=== PATIENT | female | born 1955 | race Caucasian/White ===

== ENCOUNTER 2022-08-09 06:52 | Inpatient (IN) | payer BC, MEDICAID ==
[2022-08-09] VITALS (29 sets, daily range): BP systolic 106–193; BP diastolic 60–138
[~2022-08-09] VITALS: Ht 152.4 cm; Wt 41.7 kg
[2022-08-09] MEDS ORDERED: ALBUTEROL (0.083%) 2.5MG/3ML NEB HHN STA (08:21)
[2022-08-09] MEDS ORDERED: METHYLPREDNISOLONE SOD SUCC 125 MG/2 ML VIAL IV STA (08:21)
[2022-08-09 09:00] LABS: BG BASE EXCESS 0.3 mmol/L (-2.0-2.0); BG CARBOXYHEMOGLOBIN 3.7 % (0.5-1.5); BG DEOXYHEMOGLOBIN 6.6 % (0.0-5.0); BG FRACTION INSPIRED OXYGEN 35; BG HCO3 ACT 26.5 mmol/L (22.0-26.0); BG METHEMOGLOBIN 0.3 % (0.0-1.5); BG OXYGEN SATURATION 93.1 % (92.0-98.5); BG OXYHEMOGLOBIN 89.4 % (94.0-97.0); BG PCO2 49.4 mmHg (35.0-45.0); BG PH 7.348 (7.350-7.450); BG PO2 71.8 mmHg (75.0-100.0); BG SAMPLE SITE LEFT RADIAL; BG TOTAL HEMOGLOBIN 13.7 g/dL (12.0-18.0); BG VENT MODE MASK - BIPAP
[2022-08-09 09:08] LABS: HEMATOCRIT. 41.6 % (36.0-48.0); HEMOGLOBIN. 13.4 g/dL (12.0-16.0); MEAN CORPUSCULAR HEMOGLOBIN 31.1 pg (28.0-32.0); MEAN CORPUSCULAR VOLUME 96.7 fL (81.0-99.0); MEAN PLATELET VOLUME 9.1 fl (7.4-10.4); PLATELET 170 x1000/uL (130-400); RED CELL DISTRIBUTION WIDTH 16.4 % (11.6-14.6)
[2022-08-09 09:57] LABS: CHLORIDE 107 mEq/L (98-107)
[2022-08-09 10:10] LABS: ETHANOL BLOOD < 10 mg/dL
[2022-08-09 10:32] LABS: PLATELET ESTIMATE NORMAL
[2022-08-09] MEDS ORDERED: FUROSEMIDE 40MG/4ML VIAL IVP ONE (11:15)
[2022-08-09] MEDS ORDERED: NITROGLYCERIN 0.1MG/HR PATCH TOP ONE (11:15)
[2022-08-09] MEDS ORDERED: ASPIRIN 81MG TABLET PO ONE (12:00)
[2022-08-09] MEDS ORDERED: ONDANSETRON HCL 4MG/2ML INJ IV PRN (12:45)
[2022-08-09] MEDS ORDERED: LORAZEPAM 2MG/ML CPJ IV NR (12:45)
[2022-08-09] MEDS: FUROSEMIDE 40MG/4ML VIAL IVP SCH ×2 (13:36→17:10)
[2022-08-09] MEDS: AMLODIPINE 10MG TABLET PO SCH (13:36)
[2022-08-09] MEDS: HYDRALAZINE HCL 100MG TABLET PO SCH ×3 (14:00→22:11)
[2022-08-09] MEDS ORDERED: PROPOFOL 10MG/ML 100ML 100 ML IV PRN ×2 (16:30→16:45)
[2022-08-09] MEDS: HYDRALAZINE 20MG/ML VIAL IV PRN (17:10)
[2022-08-09 17:15] LABS: BG BASE EXCESS 2.9 mmol/L (-2.0-2.0); BG CARBOXYHEMOGLOBIN 1.8 % (0.5-1.5); BG DEOXYHEMOGLOBIN 4.1 % (0.0-5.0); BG FRACTION INSPIRED OXYGEN 100; BG HCO3 ACT 26.6 mmol/L (22.0-26.0); BG METHEMOGLOBIN 0.2 % (0.0-1.5); BG OXYGEN SATURATION 95.8 % (92.0-98.5); BG OXYHEMOGLOBIN 93.9 % (94.0-97.0); BG PH 7.463 (7.350-7.450); BG PO2 79.6 mmHg (75.0-100.0); BG SAMPLE SITE LEFT BRACHIAL; BG TOTAL HEMOGLOBIN 14.8 g/dL (12.0-18.0); BG VENT MODE VENT - AC
[2022-08-09 17:35] LABS: CLARITY URINE CLEAR (CLEAR); COLOR URINE YELLOW (YELLOW); PROTEIN URINE NEGATIVE (NEGATIVE)
[2022-08-09 17:36] LABS: KETONES URINE NEGATIVE (NEGATIVE); LEUKOCYTE ESTERASE URINE NEGATIVE (NEGATIVE); NITRITE URINE NEGATIVE (NEGATIVE); OCCULT BLOOD URINE NEGATIVE (NEGATIVE); UROBILINOGEN URINE 0.2 E.U./dL (0.2-1.0)
[2022-08-09] MEDS ORDERED: FENTANYL CITRATE/PF 2,500 MCG in SODIUM CHLORIDE 0.9% 200 ML IV PRN (18:00)
[2022-08-09] MEDS: FENTANYL 2500MCG/250ML PMX 250 ML IV PRN (18:04)
[2022-08-09] MEDS: MIDAZOLAM HCL 100 MG in SODIUM CHLORIDE 0.9% 80 ML IV PRN (18:13)
[2022-08-09] MEDS: ACETAMINOPHEN 325MG TABLET PO PRN (20:17)
[2022-08-09] MEDS: IPRATROPIUM BROMIDE (0.02%) 0.5MG/2.5ML NEB HHN SCH (20:25)
[2022-08-09 20:46] LABS: BG BASE EXCESS 9.1 mmol/L (-2.0-2.0); BG DEOXYHEMOGLOBIN 1.2 % (0.0-5.0); BG FRACTION INSPIRED OXYGEN 100; BG METHEMOGLOBIN 0.3 % (0.0-1.5); BG OXYGEN SATURATION 98.8 % (92.0-98.5); BG OXYHEMOGLOBIN 97.5 % (94.0-97.0); BG PCO2 37.9 mmHg (35.0-45.0); BG PH 7.545 (7.350-7.450); BG PO2 132.7 mmHg (75.0-100.0); BG SAMPLE SITE RIGHT RADIAL; BG TOTAL HEMOGLOBIN 14.3 g/dL (12.0-18.0); BG VENT MODE VENT - AC
[2022-08-09 21:20] LABS: HEMATOCRIT. 38.2 % (36.0-48.0); HEMOGLOBIN. 12.8 g/dL (12.0-16.0); INR 1.1; MEAN CORPUSCULAR HEMOGLOBIN 31.3 pg (28.0-32.0); MEAN CORPUSCULAR VOLUME 93.8 fL (81.0-99.0); MEAN PLATELET VOLUME 8.9 fl (7.4-10.4); PLATELET 159 x1000/uL (130-400); PROTHROMBIN TIME 11.3 sec (9.6-11.0); RED BLOOD CELL COUNT 4.07 mill/uL (4.2-5.4); RED CELL DISTRIBUTION WIDTH 16.1 % (11.6-14.6)
[2022-08-09] MEDS: DEXT 5%/0.45% NACL 1000ML 1,000 ML IV SCH (22:12)
[2022-08-09 22:44] LABS: PLATELET ESTIMATE NORMAL
[2022-08-09] MEDS: AZITHROMYCIN 500 MG in DEXT 5% WATER 250 ML IV SCH (23:03)
[2022-08-09] MEDS: PIPERACILLIN/TAZOBACTAM 3.375 G in DEXTROSE 5% WATER 50 ML IV SCH (23:31)
[2022-08-10] VITALS (68 sets, daily range): BP systolic 90–143; BP diastolic 47–96
[2022-08-10] MEDS: IPRATROPIUM BROMIDE (0.02%) 0.5MG/2.5ML NEB HHN SCH ×7 (00:07→23:45)
[2022-08-10 05:41] LABS: MEAN CORPUSCULAR HEMOGLOBIN 30.8 pg (28.0-32.0); MEAN CORPUSCULAR VOLUME 94.8 fL (81.0-99.0); MEAN PLATELET VOLUME 9.1 fl (7.4-10.4); PLATELET 151 x1000/uL (130-400); RED CELL DISTRIBUTION WIDTH 16.1 % (11.6-14.6)
[2022-08-10 05:43] LABS: CHLORIDE 100 mEq/L (98-107)
[2022-08-10] MEDS: HYDRALAZINE HCL 100MG TABLET PO SCH (06:10)
[2022-08-10] MEDS: PIPERACILLIN/TAZOBACTAM 3.375 G in DEXTROSE 5% WATER 50 ML IV SCH ×3 (06:11→22:19)
[2022-08-10] MEDS: AMLODIPINE 10MG TABLET PO SCH (09:00)
[2022-08-10 09:09] LABS: *AMPHETAMINES SCREEN URINE NEGATIVE (NEGATIVE); *BARBITURATES SCREEN URINE NEGATIVE (NEGATIVE); *BENZODIAZEPINES SCREEN URINE NEGATIVE (NEGATIVE); *COCAINE SCREEN URINE PRESUMTIVE POSITIVE (NEGATIVE); CANNABINOID URINE SCREEN NEGATIVE (NEGATIVE); METHADONE URINE SCREEN NEGATIVE (NEGATIVE); OPIATES URINE SCREEN NEGATIVE (NEGATIVE); PHENCYCLIDINE URINE SCREEN NEGATIVE (NEGATIVE)
[2022-08-10] MEDS: FUROSEMIDE 40MG/4ML VIAL IVP SCH ×2 (09:26→17:21)
[2022-08-10 10:10] LABS: PLATELET ESTIMATE NORMAL
[2022-08-10] MEDS ORDERED: AMLODIPINE 2.5MG TABLET NG SCH (17:00)
[2022-08-10] MEDS: DEXT 5%/0.45% NACL 1000ML 1,000 ML IV SCH (17:21)
[2022-08-11] VITALS (97 sets, daily range): BP systolic 81–168; BP diastolic 38–108
[2022-08-11] MEDS: AZITHROMYCIN 500 MG in DEXT 5% WATER 250 ML IV SCH ×2 (00:05→21:27)
[2022-08-11] MEDS: IPRATROPIUM BROMIDE (0.02%) 0.5MG/2.5ML NEB HHN SCH ×5 (04:01→20:41)
[2022-08-11 04:08] LABS: BASOPHILS % 0.1 % (0.0-2.0); HEMATOCRIT. 39.5 % (36.0-48.0); LYMPHOCYTES % 7.2 % (20.0-50.0); MEAN CORPUSCULAR HEMOGLOBIN 31.2 pg (28.0-32.0); MEAN CORPUSCULAR VOLUME 94.8 fL (81.0-99.0); MEAN PLATELET VOLUME 9.3 fl (7.4-10.4); MONOCYTES % 10.6 % (2.0-8.0); NEUTROPHILS % 82.1 % (40.0-76.0); PLATELET 141 x1000/uL (130-400); RED BLOOD CELL COUNT 4.17 mill/uL (4.2-5.4); RED CELL DISTRIBUTION WIDTH 16.8 % (11.6-14.6)
[2022-08-11] MEDS: PIPERACILLIN/TAZOBACTAM 3.375 G in DEXTROSE 5% WATER 50 ML IV SCH ×3 (05:21→21:27)
[2022-08-11 08:11] LABS: BG CARBOXYHEMOGLOBIN 0.5 % (0.5-1.5); BG FRACTION INSPIRED OXYGEN 60; BG HCO3 ACT 30.3 mmol/L (22.0-26.0); BG METHEMOGLOBIN 0.3 % (0.0-1.5); BG OXYHEMOGLOBIN 97.2 % (94.0-97.0); BG PCO2 38.2 mmHg (35.0-45.0); BG PH 7.517 (7.350-7.450); BG SAMPLE SITE RIGHT RADIAL; BG TOTAL HEMOGLOBIN 13.1 g/dL (12.0-18.0); BG VENT MODE VENT - AC
[2022-08-11] MEDS: AMLODIPINE 2.5MG TABLET NG SCH (09:04)
[2022-08-11] MEDS: FUROSEMIDE 40MG/4ML VIAL IVP SCH ×2 (09:04→16:05)
[2022-08-11] MEDS: FENTANYL 2500MCG/250ML PMX 250 ML IV PRN (10:07)
[2022-08-11] MEDS: MIDAZOLAM HCL 100 MG in SODIUM CHLORIDE 0.9% 80 ML IV PRN (11:29)
[2022-08-11] MEDS ORDERED: POTASSIUM CHLORIDE 20MEQ TABLET SR PO NR (11:30)
[2022-08-11] MEDS: DEXT 5%/0.45% NACL 1000ML 1,000 ML IV SCH (13:06)
[2022-08-11] MEDS ORDERED: NOREPINEPHRINE 8MG/250ML PMX 250 ML IV PRN (14:30)
[2022-08-11] MEDS ORDERED: NOREPINEPHRINE 8 MG in DEXTROSE 5% WATER 250 ML IV PRN (14:45)
[2022-08-11] MEDS: MIDODRINE HCL 5MG TABLET PO SCH (16:06)
[2022-08-12] VITALS (93 sets, daily range): BP systolic 77–140; BP diastolic 40–88
[2022-08-12] MEDS: IPRATROPIUM BROMIDE (0.02%) 0.5MG/2.5ML NEB HHN SCH ×7 (00:11→20:53)
[2022-08-12 04:51] LABS: BASOPHILS % 0.5 % (0.0-2.0); HEMATOCRIT. 36.8 % (36.0-48.0); HEMOGLOBIN. 12.1 g/dL (12.0-16.0); MEAN CORPUSCULAR HEMOGLOBIN 31.1 pg (28.0-32.0); MEAN CORPUSCULAR VOLUME 94.7 fL (81.0-99.0); MEAN PLATELET VOLUME 9.4 fl (7.4-10.4); MONOCYTES % 9.4 % (2.0-8.0); NEUTROPHILS % 81.1 % (40.0-76.0); PLATELET 126 x1000/uL (130-400); RED BLOOD CELL COUNT 3.89 mill/uL (4.2-5.4); RED CELL DISTRIBUTION WIDTH 16.1 % (11.6-14.6)
[2022-08-12 05:21] LABS: CHLORIDE 97 mEq/L (98-107)
[2022-08-12] MEDS: PIPERACILLIN/TAZOBACTAM 3.375 G in DEXTROSE 5% WATER 50 ML IV SCH ×3 (05:40→21:59)
[2022-08-12] MEDS: FUROSEMIDE 40MG/4ML VIAL IVP SCH ×2 (09:07→16:30)
[2022-08-12] MEDS: MIDODRINE HCL 5MG TABLET PO SCH ×3 (09:07→16:30)
[2022-08-12] MEDS: DEXT 5%/0.45% NACL 1000ML 1,000 ML IV SCH (09:07)
[2022-08-12] MEDS: AMLODIPINE 2.5MG TABLET NG SCH (10:43)
[2022-08-12] MEDS ORDERED: POTASSIUM CHLORIDE 20MEQ TABLET SR PO NR (12:00)
[2022-08-12] MEDS: FENTANYL 2500MCG/250ML PMX 250 ML IV PRN ×2 (12:22→22:21)
[2022-08-12] MEDS: METHYLPREDNISOLONE SOD SUCC 40 MG/ML VIAL IV SCH ×2 (12:25→16:29)
[2022-08-12 12:41] LABS: BG BASE EXCESS 3.7 mmol/L (-2.0-2.0); BG CARBOXYHEMOGLOBIN 0.6 % (0.5-1.5); BG DEOXYHEMOGLOBIN 7.6 % (0.0-5.0); BG FRACTION INSPIRED OXYGEN 40; BG HCO3 ACT 27.9 mmol/L (22.0-26.0); BG METHEMOGLOBIN 0.5 % (0.0-1.5); BG OXYGEN SATURATION 92.3 % (92.0-98.5); BG OXYHEMOGLOBIN 91.3 % (94.0-97.0); BG PCO2 40.7 mmHg (35.0-45.0); BG PH 7.454 (7.350-7.450); BG SAMPLE SITE RIGHT RADIAL; BG TOTAL HEMOGLOBIN 13.3 g/dL (12.0-18.0); BG VENT MODE VENT - AC
[2022-08-12] MEDS: AZITHROMYCIN 500 MG in DEXT 5% WATER 250 ML IV SCH (21:59)
[2022-08-12] MEDS ORDERED: POTASSIUM CHLORIDE 20MEQ/PACKET NG NR (22:00)
[2022-08-13] VITALS (93 sets, daily range): BP systolic 83–155; BP diastolic 53–102
[2022-08-13] MEDS: IPRATROPIUM BROMIDE (0.02%) 0.5MG/2.5ML NEB HHN SCH ×7 (00:54→19:31)
[2022-08-13 05:19] LABS: BASOPHILS % 0.3 % (0.0-2.0); HEMATOCRIT. 37.7 % (36.0-48.0); HEMOGLOBIN. 12.2 g/dL (12.0-16.0); LYMPHOCYTES % 11.1 % (20.0-50.0); MEAN CORPUSCULAR HEMOGLOBIN 31.4 pg (28.0-32.0); MEAN CORPUSCULAR VOLUME 97.3 fL (81.0-99.0); MEAN PLATELET VOLUME 9.4 fl (7.4-10.4); MONOCYTES % 10.3 % (2.0-8.0); NEUTROPHILS % 78.3 % (40.0-76.0); PLATELET 107 x1000/uL (130-400); RED BLOOD CELL COUNT 3.88 mill/uL (4.2-5.4); RED CELL DISTRIBUTION WIDTH 16.7 % (11.6-14.6)
[2022-08-13 05:52] LABS: CHLORIDE 100 mEq/L (98-107)
[2022-08-13] MEDS: PIPERACILLIN/TAZOBACTAM 3.375 G in DEXTROSE 5% WATER 50 ML IV SCH ×3 (06:13→22:23)
[2022-08-13] MEDS: DEXT 5%/0.45% NACL 1000ML 1,000 ML IV SCH (06:13)
[2022-08-13] MEDS: AMLODIPINE 2.5MG TABLET NG SCH (09:01)
[2022-08-13] MEDS: METHYLPREDNISOLONE SOD SUCC 40 MG/ML VIAL IV SCH ×2 (09:01→17:25)
[2022-08-13] MEDS: ACETAMINOPHEN 325MG TABLET PO PRN (09:01)
[2022-08-13] MEDS: MIDODRINE HCL 5MG TABLET PO SCH ×3 (09:01→17:25)
[2022-08-13] MEDS: FUROSEMIDE 40MG/4ML VIAL IVP SCH ×2 (09:01→17:25)
[2022-08-13 16:48] LABS: BG BASE EXCESS 2.3 mmol/L (-2.0-2.0); BG CARBOXYHEMOGLOBIN 0.6 % (0.5-1.5); BG DEOXYHEMOGLOBIN 5.7 % (0.0-5.0); BG HCO3 ACT 26.5 mmol/L (22.0-26.0); BG METHEMOGLOBIN 0.1 % (0.0-1.5); BG OXYGEN SATURATION 94.3 % (92.0-98.5); BG OXYHEMOGLOBIN 93.6 % (94.0-97.0); BG PCO2 39.5 mmHg (35.0-45.0); BG PH 7.444 (7.350-7.450); BG PO2 70.8 mmHg (75.0-100.0); BG SAMPLE SITE RIGHT RADIAL; BG TOTAL HEMOGLOBIN 13.6 g/dL (12.0-18.0); BG VENT MODE VENT - AC
[2022-08-13] MEDS: AZITHROMYCIN 500 MG in DEXT 5% WATER 250 ML IV SCH (22:23)
[2022-08-13] MEDS: FENTANYL 2500MCG/250ML PMX 250 ML IV PRN (22:24)
[2022-08-14] VITALS (87 sets, daily range): BP systolic 97–204; BP diastolic 53–144
[2022-08-14] MEDS: DEXT 5%/0.45% NACL 1000ML 1,000 ML IV SCH ×2 (01:45→22:23)
[2022-08-14] MEDS: IPRATROPIUM BROMIDE (0.02%) 0.5MG/2.5ML NEB HHN SCH ×3 (04:40→12:49)
[2022-08-14] MEDS: METHYLPREDNISOLONE SOD SUCC 40 MG/ML VIAL IV SCH ×2 (08:55→17:38)
[2022-08-14] MEDS: PIPERACILLIN/TAZOBACTAM 3.375 G in DEXTROSE 5% WATER 50 ML IV SCH ×2 (08:55→14:04)
[2022-08-14] MEDS: FUROSEMIDE 40MG/4ML VIAL IVP SCH ×2 (08:55→17:38)
[2022-08-14] MEDS: MIDODRINE HCL 5MG TABLET PO SCH ×3 (08:55→17:00)
[2022-08-14] MEDS: AMLODIPINE 2.5MG TABLET NG SCH (09:00)
[2022-08-14] MEDS: ACETAMINOPHEN 325MG TABLET PO PRN (10:55)
[2022-08-14 14:03] LABS: BG BASE EXCESS 1.5 mmol/L (-2.0-2.0); BG CARBOXYHEMOGLOBIN 0.5 % (0.5-1.5); BG FRACTION INSPIRED OXYGEN 50; BG HCO3 ACT 26.7 mmol/L (22.0-26.0); BG METHEMOGLOBIN 0.2 % (0.0-1.5); BG OXYHEMOGLOBIN 95.3 % (94.0-97.0); BG PH 7.401 (7.350-7.450); BG PO2 85.1 mmHg (75.0-100.0); BG SAMPLE SITE RIGHT RADIAL; BG TOTAL HEMOGLOBIN 14.7 g/dL (12.0-18.0); BG VENT MODE VENT - CPAP
[2022-08-14] MEDS ORDERED: HALOPERIDOL LACTATE 5MG/ML VIAL IM NR (15:00)
[2022-08-14] MEDS ORDERED: ALBUTEROL 6.7GM HFA INHALER ORI PRN (16:30)
[2022-08-14 20:36] LABS: BG BASE EXCESS 4.6 mmol/L (-2.0-2.0); BG CARBOXYHEMOGLOBIN 0.8 % (0.5-1.5); BG DEOXYHEMOGLOBIN 3.6 % (0.0-5.0); BG FRACTION INSPIRED OXYGEN 100; BG HCO3 ACT 30.1 mmol/L (22.0-26.0); BG METHEMOGLOBIN 0.2 % (0.0-1.5); BG OXYGEN SATURATION 96.4 % (92.0-98.5); BG OXYHEMOGLOBIN 95.4 % (94.0-97.0); BG PCO2 47.7 mmHg (35.0-45.0); BG PH 7.418 (7.350-7.450); BG PO2 86.1 mmHg (75.0-100.0); BG SAMPLE SITE RIGHT RADIAL; BG TOTAL HEMOGLOBIN 14.4 g/dL (12.0-18.0); BG VENT MODE MASK - NRB
[2022-08-14] MEDS: HYDRALAZINE 20MG/ML VIAL IV PRN (22:45)
[2022-08-15] VITALS (43 sets, daily range): BP systolic 126–196; BP diastolic 70–141
[2022-08-15] MEDS: CLONIDINE 0.1MG TABLET PO PRN (02:40)
[2022-08-15 05:13] LABS: HEMATOCRIT. 42.1 % (36.0-48.0); HEMOGLOBIN. 13.6 g/dL (12.0-16.0); MEAN CORPUSCULAR HEMOGLOBIN 30.4 pg (28.0-32.0); MEAN CORPUSCULAR VOLUME 94.4 fL (81.0-99.0); MEAN PLATELET VOLUME 9.6 fl (7.4-10.4); PLATELET 140 x1000/uL (130-400); RED BLOOD CELL COUNT 4.46 mill/uL (4.2-5.4); RED CELL DISTRIBUTION WIDTH 15.8 % (11.6-14.6)
[2022-08-15 05:19] LABS: CHLORIDE 101 mEq/L (98-107)
[2022-08-15 07:45] LABS: BG CARBOXYHEMOGLOBIN 0.8 % (0.5-1.5); BG DEOXYHEMOGLOBIN 2.2 % (0.0-5.0); BG HCO3 ACT 34.4 mmol/L (22.0-26.0); BG METHEMOGLOBIN 0.2 % (0.0-1.5); BG OXYGEN SATURATION 97.8 % (92.0-98.5); BG OXYHEMOGLOBIN 96.8 % (94.0-97.0); BG PCO2 49.2 mmHg (35.0-45.0); BG PH 7.462 (7.350-7.450); BG PO2 99.8 mmHg (75.0-100.0); BG SAMPLE SITE RIGHT RADIAL; BG TOTAL HEMOGLOBIN 14.9 g/dL (12.0-18.0); BG VENT MODE MASK - NRB
[2022-08-15 08:34] LABS: PLATELET ESTIMATE NORMAL
[2022-08-15] MEDS: MIDODRINE HCL 5MG TABLET PO SCH (09:00)
[2022-08-15] MEDS: METHYLPREDNISOLONE SOD SUCC 40 MG/ML VIAL IV SCH ×2 (09:16→17:00)
[2022-08-15] MEDS: FUROSEMIDE 40MG/4ML VIAL IVP SCH ×2 (09:16→17:00)
[2022-08-15] MEDS ORDERED: LORAZEPAM 2MG/ML CPJ IV PRN (12:30)
[2022-08-15] MEDS ORDERED: ENOXAPARIN 40MG/0.4ML SYR SUBCUT SCH (13:00)
[2022-08-15] MEDS ORDERED: POTASSIUM CHLORIDE INJ 40 MEQ in DEXT 5% WATER 250 ML IV NR (13:30)
[2022-08-15] MEDS: HYDRALAZINE 20MG/ML VIAL IV PRN ×2 (13:58→21:59)
[2022-08-15] MEDS: DEXT 5%/0.45% NACL 1000ML 1,000 ML IV SCH (18:41)
[2022-08-16] VITALS (46 sets, daily range): BP systolic 121–188; BP diastolic 58–131
[2022-08-16 04:36] LABS: HEMATOCRIT. 46.4 % (36.0-48.0); HEMOGLOBIN. 14.9 g/dL (12.0-16.0); MEAN CORPUSCULAR HEMOGLOBIN 30.4 pg (28.0-32.0); MEAN CORPUSCULAR VOLUME 94.5 fL (81.0-99.0); MEAN PLATELET VOLUME 9.5 fl (7.4-10.4); PLATELET 184 x1000/uL (130-400); RED BLOOD CELL COUNT 4.91 mill/uL (4.2-5.4); RED CELL DISTRIBUTION WIDTH 15.9 % (11.6-14.6)
[2022-08-16 04:40] LABS: CHLORIDE 100 mEq/L (98-107)
[2022-08-16] MEDS: HYDRALAZINE 20MG/ML VIAL IV PRN (05:07)
[2022-08-16 07:39] LABS: PLATELET ESTIMATE NORMAL
[2022-08-16] MEDS: CLONIDINE 0.1MG TABLET PO PRN (07:39)
[2022-08-16] MEDS ORDERED: HYDRALAZINE 20MG/ML VIAL IV PRN (08:15)
[2022-08-16] MEDS ORDERED: HYDRALAZINE 20MG/ML VIAL IV NR (08:15)
[2022-08-16] MEDS: FUROSEMIDE 40MG/4ML VIAL IVP SCH ×2 (08:29→16:31)
[2022-08-16] MEDS: AMLODIPINE 5MG TABLET PO SCH ×2 (08:29→20:57)
[2022-08-16] MEDS: METHYLPREDNISOLONE SOD SUCC 40 MG/ML VIAL IV SCH ×2 (08:29→16:31)
[2022-08-16] MEDS: ENOXAPARIN 30MG/0.3ML SYR SUBCUT SCH (08:30)
[2022-08-16] MEDS ORDERED: AMLODIPINE 5MG TABLET NG SCH (10:00)
[2022-08-16] MEDS: HYDRALAZINE HCL 50MG TABLET PO SCH ×2 (13:06→21:56)
[2022-08-16 13:07] LABS: BG BASE EXCESS 7.5 mmol/L (-2.0-2.0); BG DEOXYHEMOGLOBIN 2.2 % (0.0-5.0); BG FRACTION INSPIRED OXYGEN 100; BG HCO3 ACT 32.6 mmol/L (22.0-26.0); BG METHEMOGLOBIN 0.2 % (0.0-1.5); BG OXYGEN SATURATION 97.8 % (92.0-98.5); BG OXYHEMOGLOBIN 96.6 % (94.0-97.0); BG PCO2 46.5 mmHg (35.0-45.0); BG PH 7.463 (7.350-7.450); BG PO2 93.9 mmHg (75.0-100.0); BG SAMPLE SITE RIGHT RADIAL; BG VENT MODE MASK - NRB
[2022-08-16] MEDS: DEXT 5%/0.45% NACL 1000ML 1,000 ML IV SCH (13:07)
[2022-08-17] VITALS (34 sets, daily range): BP systolic 97–153; BP diastolic 55–102
[2022-08-17 05:21] LABS: HEMATOCRIT. 47.3 % (36.0-48.0); HEMOGLOBIN. 15.6 g/dL (12.0-16.0); MEAN CORPUSCULAR HEMOGLOBIN 30.7 pg (28.0-32.0); MEAN CORPUSCULAR VOLUME 93.2 fL (81.0-99.0); MEAN PLATELET VOLUME 9.3 fl (7.4-10.4); PLATELET 205 x1000/uL (130-400); RED BLOOD CELL COUNT 5.07 mill/uL (4.2-5.4); RED CELL DISTRIBUTION WIDTH 15.5 % (11.6-14.6)
[2022-08-17 05:40] LABS: CHLORIDE 97 mEq/L (98-107)
[2022-08-17] MEDS: HYDRALAZINE HCL 50MG TABLET PO SCH ×3 (06:21→21:02)
[2022-08-17] MEDS: METHYLPREDNISOLONE SOD SUCC 40 MG/ML VIAL IV SCH ×2 (08:26→18:00)
[2022-08-17] MEDS: FUROSEMIDE 40MG/4ML VIAL IVP SCH (08:26)
[2022-08-17] MEDS: AMLODIPINE 5MG TABLET PO SCH ×2 (08:26→21:00)
[2022-08-17] MEDS: DEXT 5%/0.45% NACL 1000ML 1,000 ML IV SCH (08:27)
[2022-08-17] MEDS: ENOXAPARIN 30MG/0.3ML SYR SUBCUT SCH (08:27)
[2022-08-17 08:38] LABS: PLATELET ESTIMATE NORMAL
[2022-08-18] VITALS: BP 129/93
[2022-08-18 04:00] VITALS: BP 131/76
[2022-08-18] MEDS: ACETAMINOPHEN 325MG TABLET PO PRN (05:19)
[2022-08-18] MEDS: HYDRALAZINE HCL 50MG TABLET PO SCH ×3 (05:20→21:27)
[2022-08-18 08:00] VITALS: BP 107/80
[2022-08-18] MEDS: AMLODIPINE 5MG TABLET PO SCH ×2 (09:00→21:27)
[2022-08-18] MEDS: ENOXAPARIN 30MG/0.3ML SYR SUBCUT SCH (09:11)
[2022-08-18] MEDS: METHYLPREDNISOLONE SOD SUCC 40 MG/ML VIAL IV SCH ×2 (09:11→18:29)
[2022-08-18] MEDS: FUROSEMIDE 40MG TABLET PO SCH (09:11)
[2022-08-18 12:00] VITALS: BP 108/75
[2022-08-18 16:00] VITALS: BP 109/74
[2022-08-18] MEDS ORDERED: POTASSIUM CHLORIDE 20MEQ TABLET SR PO SCH (17:30)
[2022-08-18 20:00] VITALS: BP 135/91
[2022-08-19] VITALS: BP 124/71
[2022-08-19 04:00] VITALS: BP 135/85
[2022-08-19] MEDS: HYDRALAZINE HCL 50MG TABLET PO SCH ×3 (05:22→22:35)
[2022-08-19 05:48] LABS: HEMATOCRIT. 44.7 % (36.0-48.0); HEMOGLOBIN. 14.8 g/dL (12.0-16.0); MEAN CORPUSCULAR HEMOGLOBIN 30.7 pg (28.0-32.0); MEAN CORPUSCULAR VOLUME 92.7 fL (81.0-99.0); MEAN PLATELET VOLUME 9.2 fl (7.4-10.4); PLATELET 217 x1000/uL (130-400); RED BLOOD CELL COUNT 4.82 mill/uL (4.2-5.4); RED CELL DISTRIBUTION WIDTH 15.6 % (11.6-14.6)
[2022-08-19 08:00] VITALS: BP 124/73
[2022-08-19 09:00] LABS: CHLORIDE 99 mEq/L (98-107)
[2022-08-19] MEDS: FUROSEMIDE 40MG TABLET PO SCH (09:14)
[2022-08-19] MEDS: METHYLPREDNISOLONE SOD SUCC 40 MG/ML VIAL IV SCH (09:14)
[2022-08-19] MEDS: ENOXAPARIN 30MG/0.3ML SYR SUBCUT SCH (09:14)
[2022-08-19] MEDS: AMLODIPINE 5MG TABLET PO SCH ×2 (09:15→20:15)
[2022-08-19 12:00] VITALS: BP 124/83
[2022-08-19 12:38] LABS: PLATELET ESTIMATE NORMAL
[2022-08-19] MEDS: PREDNISONE 20MG TABLET PO SCH (14:37)
[2022-08-19 16:00] VITALS: BP 101/66
[2022-08-19 20:00] VITALS: BP 120/84
[2022-08-19] MEDS: QUETIAPINE FUMARATE 25MG TABLET PO SCH (20:14)
[2022-08-20] VITALS: BP_SYST 124; BP_SYST 129; BP_DIAS 75; BP_DIAS 88
[2022-08-20] MEDS: PREDNISONE 20MG TABLET PO SCH ×2 (00:45→13:48)
[2022-08-20 04:00] VITALS: BP 131/85
[2022-08-20] MEDS: HYDRALAZINE HCL 50MG TABLET PO SCH ×3 (05:01→21:05)
[2022-08-20 08:00] VITALS: BP 108/77
[2022-08-20] MEDS: AMLODIPINE 5MG TABLET PO SCH ×2 (08:59→21:00)
[2022-08-20] MEDS: ENOXAPARIN 30MG/0.3ML SYR SUBCUT SCH (09:09)
[2022-08-20] MEDS: FUROSEMIDE 40MG TABLET PO SCH (09:10)
[2022-08-20] MEDS: QUETIAPINE FUMARATE 25MG TABLET PO SCH ×2 (09:10→21:32)
[2022-08-20 12:00] VITALS: BP 110/71
[2022-08-20 16:00] VITALS: BP 115/77
[2022-08-20 20:00] VITALS: BP 90/57
[2022-08-21] VITALS: BP 145/53
[2022-08-21] MEDS: PREDNISONE 20MG TABLET PO SCH ×2 (01:26→12:54)
[2022-08-21 04:00] VITALS: BP 144/95
[2022-08-21] MEDS: HYDRALAZINE HCL 50MG TABLET PO SCH ×3 (06:40→21:06)
[2022-08-21 07:49] LABS: BASOPHILS % 0.1 % (0.0-2.0); EOSINOPHILS % 0.9 % (0.0-5.0); HEMATOCRIT. 42.3 % (36.0-48.0); HEMOGLOBIN. 13.8 g/dL (12.0-16.0); LYMPHOCYTES % 11.5 % (20.0-50.0); MEAN CORPUSCULAR HEMOGLOBIN 30.6 pg (28.0-32.0); MEAN CORPUSCULAR VOLUME 93.5 fL (81.0-99.0); MONOCYTES % 10.5 % (2.0-8.0); PLATELET 225 x1000/uL (130-400); RED BLOOD CELL COUNT 4.52 mill/uL (4.2-5.4); RED CELL DISTRIBUTION WIDTH 15.6 % (11.6-14.6)
[2022-08-21 08:00] VITALS: BP 132/82
[2022-08-21 08:13] LABS: CHLORIDE 98 mEq/L (98-107)
[2022-08-21] MEDS: AMLODIPINE 5MG TABLET PO SCH ×2 (09:30→20:50)
[2022-08-21] MEDS: QUETIAPINE FUMARATE 25MG TABLET PO SCH (09:30)
[2022-08-21] MEDS: ENOXAPARIN 30MG/0.3ML SYR SUBCUT SCH (09:31)
[2022-08-21] MEDS: FUROSEMIDE 40MG TABLET PO SCH (09:34)
[2022-08-21 12:00] VITALS: BP 114/66
[2022-08-21 16:00] VITALS: BP 103/63
[2022-08-21 20:00] VITALS: BP 95/58
[2022-08-21] MEDS: QUETIAPINE FUMARATE 50MG TABLET PO SCH (20:32)
[2022-08-22] VITALS: BP 126/81
[2022-08-22] MEDS: PREDNISONE 20MG TABLET PO SCH ×2 (01:45→14:08)
[2022-08-22 04:00] VITALS: BP 146/117
[2022-08-22] MEDS: HYDRALAZINE HCL 50MG TABLET PO SCH ×3 (05:56→21:01)
[2022-08-22 08:00] VITALS: BP 109/72
[2022-08-22] MEDS: AMLODIPINE 5MG TABLET PO SCH ×2 (09:00→21:01)
[2022-08-22] MEDS: FUROSEMIDE 40MG TABLET PO SCH (09:03)
[2022-08-22] MEDS: QUETIAPINE FUMARATE 50MG TABLET PO SCH ×2 (09:03→21:01)
[2022-08-22] MEDS: ENOXAPARIN 30MG/0.3ML SYR SUBCUT SCH (09:03)
[2022-08-22 12:00] VITALS: BP 119/68
[2022-08-22 16:00] VITALS: BP 97/60
[2022-08-22 20:00] VITALS: BP 118/69
[2022-08-23] VITALS: BP 98/66
[2022-08-23] MEDS: PREDNISONE 20MG TABLET PO SCH ×2 (01:45→13:40)
[2022-08-23 04:00] VITALS: BP 113/72
[2022-08-23] MEDS: HYDRALAZINE HCL 50MG TABLET PO SCH ×3 (06:00→21:31)
[2022-08-23 06:19] LABS: BASOPHILS % 0.1 % (0.0-2.0); EOSINOPHILS % 0.2 % (0.0-5.0); HEMATOCRIT. 44.4 % (36.0-48.0); HEMOGLOBIN. 14.3 g/dL (12.0-16.0); LYMPHOCYTES % 13.7 % (20.0-50.0); MEAN CORPUSCULAR HEMOGLOBIN 30.2 pg (28.0-32.0); MEAN PLATELET VOLUME 9.3 fl (7.4-10.4); MONOCYTES % 9.6 % (2.0-8.0); NEUTROPHILS % 76.4 % (40.0-76.0); PLATELET 214 x1000/uL (130-400); RED BLOOD CELL COUNT 4.73 mill/uL (4.2-5.4); RED CELL DISTRIBUTION WIDTH 15.8 % (11.6-14.6)
[2022-08-23 08:00] VITALS: BP 117/72
[2022-08-23] MEDS: FUROSEMIDE 40MG TABLET PO SCH (08:56)
[2022-08-23] MEDS: ENOXAPARIN 30MG/0.3ML SYR SUBCUT SCH (08:56)
[2022-08-23] MEDS: AMLODIPINE 5MG TABLET PO SCH ×2 (08:56→20:49)
[2022-08-23] MEDS: QUETIAPINE FUMARATE 50MG TABLET PO SCH ×2 (08:56→20:49)
[2022-08-23 10:54] LABS: CHLORIDE 98 mEq/L (98-107)
[2022-08-23 12:00] VITALS: BP 90/62
[2022-08-23 16:00] VITALS: BP 103/67
[2022-08-23 20:00] VITALS: BP 115/72
[2022-08-24] VITALS: BP 120/78
[2022-08-24] MEDS: PREDNISONE 20MG TABLET PO SCH ×2 (00:54→13:09)
[2022-08-24 04:00] VITALS: BP 116/75
[2022-08-24] MEDS: HYDRALAZINE HCL 50MG TABLET PO SCH ×3 (05:27→21:05)
[2022-08-24 08:00] VITALS: BP_SYST 105; BP_SYST 108; BP_DIAS 60; BP_DIAS 70
[2022-08-24] MEDS: FUROSEMIDE 40MG TABLET PO SCH (08:43)
[2022-08-24] MEDS: QUETIAPINE FUMARATE 50MG TABLET PO SCH ×2 (08:43→21:05)
[2022-08-24] MEDS: AMLODIPINE 5MG TABLET PO SCH ×2 (08:43→21:05)
[2022-08-24] MEDS: ENOXAPARIN 30MG/0.3ML SYR SUBCUT SCH (08:43)
[2022-08-24 12:00] VITALS: BP 90/60
[2022-08-24 16:00] VITALS: BP 90/61
[2022-08-24 20:00] VITALS: BP 117/86
[2022-08-25] VITALS (7 sets, daily range): BP systolic 94–120; BP diastolic 56–89
[2022-08-25] MEDS: PREDNISONE 20MG TABLET PO SCH ×2 (01:30→13:30)
[2022-08-25] MEDS: HYDRALAZINE HCL 50MG TABLET PO SCH ×3 (05:09→22:44)
[2022-08-25 08:00] LABS: CHLORIDE 99 mEq/L (98-107)
[2022-08-25] MEDS: FUROSEMIDE 40MG TABLET PO SCH (08:44)
[2022-08-25] MEDS: QUETIAPINE FUMARATE 50MG TABLET PO SCH ×2 (08:44→20:48)
[2022-08-25] MEDS: ENOXAPARIN 30MG/0.3ML SYR SUBCUT SCH (08:44)
[2022-08-25] MEDS: AMLODIPINE 5MG TABLET PO SCH ×2 (09:00→20:49)
[2022-08-26] VITALS: BP 110/70
[2022-08-26] MEDS: PREDNISONE 20MG TABLET PO SCH ×2 (00:49→14:03)
[2022-08-26 04:00] VITALS: BP 120/65
[2022-08-26] MEDS: HYDRALAZINE HCL 50MG TABLET PO SCH ×3 (05:34→21:25)
[2022-08-26 08:00] VITALS: BP 126/79
[2022-08-26] MEDS: QUETIAPINE FUMARATE 50MG TABLET PO SCH ×2 (09:34→20:07)
[2022-08-26] MEDS: FUROSEMIDE 40MG TABLET PO SCH (09:34)
[2022-08-26] MEDS: ENOXAPARIN 30MG/0.3ML SYR SUBCUT SCH (09:34)
[2022-08-26] MEDS: AMLODIPINE 5MG TABLET PO SCH ×2 (09:34→20:07)
[2022-08-26 12:00] VITALS: BP 106/69
[2022-08-26 16:00] VITALS: BP 101/59
[2022-08-26 20:00] VITALS: BP 113/84
[2022-08-27] VITALS: BP 120/81
[2022-08-27] MEDS: PREDNISONE 20MG TABLET PO SCH ×2 (01:03→14:22)
[2022-08-27 04:00] VITALS: BP 110/81
[2022-08-27] MEDS: HYDRALAZINE HCL 50MG TABLET PO SCH ×2 (05:30→14:00)
[2022-08-27 06:27] LABS: HEMOGLOBIN. 12.7 g/dL (12.0-16.0); MEAN CORPUSCULAR HEMOGLOBIN 30.3 pg (28.0-32.0); MEAN CORPUSCULAR VOLUME 93.3 fL (81.0-99.0); MEAN PLATELET VOLUME 9.1 fl (7.4-10.4); PLATELET 188 x1000/uL (130-400); RED BLOOD CELL COUNT 4.19 mill/uL (4.2-5.4); RED CELL DISTRIBUTION WIDTH 15.6 % (11.6-14.6)
[2022-08-27 08:00] VITALS: BP 102/72
[2022-08-27 08:13] LABS: CHLORIDE 101 mEq/L (98-107)
[2022-08-27] MEDS: AMLODIPINE 5MG TABLET PO SCH (09:00)
[2022-08-27] MEDS: FUROSEMIDE 40MG TABLET PO SCH (09:27)
[2022-08-27] MEDS: QUETIAPINE FUMARATE 50MG TABLET PO SCH (09:28)
[2022-08-27] MEDS: ENOXAPARIN 30MG/0.3ML SYR SUBCUT SCH (09:28)
[2022-08-27 09:57] LABS: PLATELET ESTIMATE NORMAL
[2022-08-27 12:00] VITALS: BP 105/72
[2022-08-27 16:00] VITALS: BP 111/80
== END 2022-08-27 19:30 | disposition left against medical advice (07) | DRG 870 ==
LOC: ER 06:52 → MICUNO 11:11 → EDBEDREQ 11:15 → EDBEDREQTM 11:15 → EDBEDREQSVC 11:15 → ENRESERV 12:26 → 7EST 08-17 17:13
PROVIDERS: ADMIT Internal Medicine; ATTEND Internal Medicine
PROC: 5A1955Z Respiratory Ventilation, Greater than 96 Consecutive Hours (ICD-10-PCS; principal; 2022-08-09)
PROC: 5A09357 Assistance with Respiratory Ventilation, Less than 24 Consecutive Hours, Continuous Positive Airway Pressure (ICD-10-PCS; 2022-08-09)
PROC: 0BH17EZ Insertion of Endotracheal Airway into Trachea, Via Natural or Artificial Opening (ICD-10-PCS; 2022-08-09)
DX: A41.89 Other specified sepsis (principal); I21.4 Non-ST elevation (NSTEMI) myocardial infarction; I50.43 Acute on chronic combined systolic (congestive) and diastolic (congestive) heart failure; U07.1 COVID-19; J96.01 Acute respiratory failure with hypoxia; E44.0 Moderate protein-calorie malnutrition; J44.1 Chronic obstructive pulmonary disease with (acute) exacerbation; J44.0 Chronic obstructive pulmonary disease with (acute) lower respiratory infection; J84.9 Interstitial pulmonary disease, unspecified; E87.3 Alkalosis; G93.40 Encephalopathy, unspecified; R64 Cachexia; Z68.1 Body mass index [BMI] 19.9 or less, adult; I16.0 Hypertensive urgency; I11.0 Hypertensive heart disease with heart failure; E78.5 Hyperlipidemia, unspecified; I71.20 Thoracic aortic aneurysm, without rupture, unspecified; F14.10 Cocaine abuse, uncomplicated; F17.200 Nicotine dependence, unspecified, uncomplicated; R74.01 Elevation of levels of liver transaminase levels; E87.6 Hypokalemia; I49.1 Atrial premature depolarization; Z86.73 Personal history of transient ischemic attack (TIA), and cerebral infarction without residual deficits; Z78.1 Physical restraint status; Z79.899 Other long term (current) drug therapy; Z78.9 Other specified health status; Z53.29 Procedure and treatment not carried out because of patient's decision for other reasons
CPT/HCPCS: 31500; 36415; 36600; 71045; 71250; 80048; 80053; 80305; 80320; 81003; 82140; 82375; 82805; 82962; 83735; 83880; 84145; 84478; 84484; 85025; 87070; 87426; 92610; 93005; 94003; 94640; 94660; 99291; C9803; J0360; J0456; J1630; J1650; J1940; J2060; J2250; J2405; J2543; J2704; J2920; J2930; J3010; J3480; J3490; J7050; J7060; J7512; G0480

== ENCOUNTER 2022-11-16 01:45 | Inpatient (IN) | payer BC, MEDICAID ==
[~2022-11-16] VITALS: Ht 149.9 cm; Wt 50.8 kg
[2022-11-16] MEDS ORDERED: AMLODIPINE 5MG TABLET PO ONE ×2 (03:30→05:45)
[2022-11-16 04:09] LABS: BASOPHILS % 0.8 % (0.0-2.0); EOSINOPHILS % 1.3 % (0.0-5.0); HEMATOCRIT. 37.7 % (36.0-48.0); HEMOGLOBIN. 12.4 g/dL (12.0-16.0); LYMPHOCYTES % 13.2 % (20.0-50.0); MEAN CORPUSCULAR HEMOGLOBIN 31.9 pg (28.0-32.0); MEAN CORPUSCULAR VOLUME 96.6 fL (81.0-99.0); MEAN PLATELET VOLUME 8.9 fl (7.4-10.4); MONOCYTES % 6.7 % (2.0-8.0); PLATELET 164 x1000/uL (130-400); RED BLOOD CELL COUNT 3.91 mill/uL (4.2-5.4); RED CELL DISTRIBUTION WIDTH 15.4 % (11.6-14.6)
[2022-11-16 04:16] LABS: CHLORIDE 108 mEq/L (98-107)
[2022-11-16 04:45] LABS: BG BASE EXCESS 2.2 mmol/L (-2.0-2.0); BG CARBOXYHEMOGLOBIN 3.4 % (0.5-1.5); BG DEOXYHEMOGLOBIN 8.2 % (0.0-5.0); BG FRACTION INSPIRED OXYGEN 28; BG HCO3 ACT 27.1 mmol/L (22.0-26.0); BG METHEMOGLOBIN 0.1 % (0.0-1.5); BG OXYGEN SATURATION 91.5 % (92.0-98.5); BG OXYHEMOGLOBIN 88.3 % (94.0-97.0); BG PCO2 43.3 mmHg (35.0-45.0); BG PH 7.414 (7.350-7.450); BG PO2 62.9 mmHg (75.0-100.0); BG SAMPLE SITE RIGHT RADIAL; BG TOTAL HEMOGLOBIN 13.2 g/dL (12.0-18.0); BG VENT MODE NASAL CANNULA
[2022-11-16] MEDS ORDERED: ASPIRIN 325MG EC TABLET PO ONE (05:00)
[2022-11-16] MEDS ORDERED: FUROSEMIDE 20MG/2ML VIAL IVP ONE (05:45)
[2022-11-16] MEDS ORDERED: ONDANSETRON HCL 4MG/2ML INJ IV PRN (06:45)
[2022-11-16] MEDS ORDERED: IPRATROPIUM/ALBUTEROL 0.5-3(2.5)MG/3ML NEB HHN SCH (06:45)
[2022-11-16] MEDS ORDERED: MAGNESIUM/ALUMINUM HYDROXIDE/SIMETHICONE 30ML UDC PO PRN (06:45)
[2022-11-16] MEDS: ASPIRIN 81MG TABLET PO SCH (08:50)
[2022-11-16] MEDS: ENOXAPARIN 40MG/0.4ML SYR SUBCUT SCH (09:00)
[2022-11-16] MEDS: FAMOTIDINE 20MG/2ML VIAL IV SCH (09:00)
[2022-11-16] MEDS: FUROSEMIDE 40MG/4ML VIAL IVP SCH (09:00)
[2022-11-16] MEDS: LISINOPRIL 20MG TABLET PO SCH (09:00)
[2022-11-16] MEDS: CLONIDINE 0.1MG TABLET PO PRN (10:58)
[2022-11-16 13:35] VITALS: BP 113/79
[2022-11-16 13:44] VITALS: BP 113/79
[2022-11-16 14:08] LABS: CREATINE KINASE MB FRACTION 5.1 ng/mL (0.5-3.6)
[2022-11-16] MEDS: IPRATROPIUM BROMIDE (0.02%) 0.5MG/2.5ML NEB HHN SCH ×2 (14:08→20:11)
[2022-11-16] MEDS: ALBUTEROL (0.083%) 2.5MG/3ML NEB HHN SCH ×2 (14:09→20:11)
[2022-11-16] MEDS ORDERED: PNEUMOCOCCAL 23-VAL P-SAC VAC 0.5 ML IM ONE (14:30)
[2022-11-16] MEDS ORDERED: INFLUENZA VACCINE 05/PF 0.5 ML SYRINGE IM ONE (14:30)
[2022-11-16 16:00] VITALS: BP 127/91
[2022-11-16 20:00] VITALS: BP 122/95
[2022-11-16 20:03] LABS: CREATINE KINASE MB FRACTION 4.2 ng/mL (0.5-3.6)
[2022-11-16] MEDS: SPIRONOLACTONE 25MG TABLET PO SCH (20:53)
[2022-11-17] VITALS (7 sets, daily range): BP systolic 83–157; BP diastolic 51–103
[2022-11-17] MEDS: IPRATROPIUM BROMIDE (0.02%) 0.5MG/2.5ML NEB HHN SCH ×6 (00:28→21:35)
[2022-11-17] MEDS: ALBUTEROL (0.083%) 2.5MG/3ML NEB HHN SCH ×6 (00:28→21:35)
[2022-11-17 01:05] LABS: CREATINE KINASE MB FRACTION 3.8 ng/mL (0.5-3.6)
[2022-11-17] MEDS: CLONIDINE 0.1MG TABLET PO PRN (05:24)
[2022-11-17 06:55] LABS: BASOPHILS % 0.7 % (0.0-2.0); HEMATOCRIT. 40.9 % (36.0-48.0); HEMOGLOBIN. 13.2 g/dL (12.0-16.0); LYMPHOCYTES % 11.2 % (20.0-50.0); MEAN CORPUSCULAR HEMOGLOBIN 31.3 pg (28.0-32.0); MEAN CORPUSCULAR VOLUME 96.8 fL (81.0-99.0); MEAN PLATELET VOLUME 9.4 fl (7.4-10.4); MONOCYTES % 5.8 % (2.0-8.0); NEUTROPHILS % 81.3 % (40.0-76.0); PLATELET 180 x1000/uL (130-400); RED BLOOD CELL COUNT 4.23 mill/uL (4.2-5.4); RED CELL DISTRIBUTION WIDTH 15.5 % (11.6-14.6)
[2022-11-17 06:59] LABS: CHLORIDE 104 mEq/L (98-107)
[2022-11-17 07:23] LABS: HDL CHOLESTEROL 45 mg/dL (40-59); LDL CHOLESTEROL 151 mg/dL (5-100); T4 FREE 1.63 ng/dL (0.76-1.46)
[2022-11-17 07:57] LABS: VITAMIN B12 SERUM 251 pg/mL (211-911)
[2022-11-17] MEDS: ENOXAPARIN 40MG/0.4ML SYR SUBCUT SCH (09:23)
[2022-11-17] MEDS: ASPIRIN 81MG TABLET PO SCH (09:23)
[2022-11-17] MEDS: FUROSEMIDE 40MG/4ML VIAL IVP SCH (09:23)
[2022-11-17] MEDS: FAMOTIDINE 20MG/2ML VIAL IV SCH (09:23)
[2022-11-17] MEDS: LISINOPRIL 20MG TABLET PO SCH (09:23)
[2022-11-17] MEDS ORDERED: SODIUM CHLORIDE 0.9% 250 ML IV ONE (13:00)
[2022-11-17] MEDS ORDERED: IPRATROPIUM BROMIDE (0.02%) 0.5MG/2.5ML NEB HHN PRN (17:00)
[2022-11-17] MEDS ORDERED: ALBUTEROL (0.083%) 2.5MG/3ML NEB HHN PRN (17:00)
[2022-11-17] MEDS ORDERED: IPRATROPIUM/ALBUTEROL 0.5-3(2.5)MG/3ML NEB HHN PRN (17:00)
[2022-11-17 19:00] LABS: CLARITY URINE CLOUDY (CLEAR); COLOR URINE YELLOW (YELLOW); KETONES URINE TRACE (NEGATIVE); LEUKOCYTE ESTERASE URINE 1+ (NEGATIVE); NITRITE URINE NEGATIVE (NEGATIVE); OCCULT BLOOD URINE NEGATIVE (NEGATIVE); PH URINE 5.5 (4.5-8.0); PROTEIN URINE TRACE (NEGATIVE); SPECIFIC GRAVITY URINE 1.017 (1.005-1.030)
[2022-11-17 19:48] LABS: *AMPHETAMINES SCREEN URINE NEGATIVE (NEGATIVE); *BARBITURATES SCREEN URINE NEGATIVE (NEGATIVE); *BENZODIAZEPINES SCREEN URINE NEGATIVE (NEGATIVE); *COCAINE SCREEN URINE PRESUMTIVE POSITIVE (NEGATIVE); CANNABINOID URINE SCREEN NEGATIVE (NEGATIVE); METHADONE URINE SCREEN NEGATIVE (NEGATIVE); OPIATES URINE SCREEN NEGATIVE (NEGATIVE); PHENCYCLIDINE URINE SCREEN NEGATIVE (NEGATIVE)
[2022-11-17] MEDS: BUDESONIDE 0.5MG/2ML NEB HHN SCH (20:50)
[2022-11-17] MEDS: SPIRONOLACTONE 25MG TABLET PO SCH (21:00)
[2022-11-17] MEDS ORDERED: IPRATROPIUM/ALBUTEROL 0.5-3(2.5)MG/3ML NEB HHN SCH (22:00)
[2022-11-18] VITALS: BP 124/73
[2022-11-18] MEDS: ALBUTEROL (0.083%) 2.5MG/3ML NEB HHN SCH ×3 (02:20→15:14)
[2022-11-18] MEDS: IPRATROPIUM BROMIDE (0.02%) 0.5MG/2.5ML NEB HHN SCH ×3 (02:20→15:14)
[2022-11-18] MEDS: BUDESONIDE 0.5MG/2ML NEB HHN SCH (02:20)
[2022-11-18 04:00] VITALS: BP 109/73
[2022-11-18 06:10] LABS: BASOPHILS % 0.9 % (0.0-2.0); EOSINOPHILS % 0.8 % (0.0-5.0); HEMATOCRIT. 38.3 % (36.0-48.0); HEMOGLOBIN. 12.7 g/dL (12.0-16.0); LYMPHOCYTES % 12.2 % (20.0-50.0); MEAN CORPUSCULAR HEMOGLOBIN 32.2 pg (28.0-32.0); MEAN CORPUSCULAR VOLUME 96.7 fL (81.0-99.0); MEAN PLATELET VOLUME 9.4 fl (7.4-10.4); MONOCYTES % 9.7 % (2.0-8.0); NEUTROPHILS % 76.4 % (40.0-76.0); PLATELET 170 x1000/uL (130-400); RED BLOOD CELL COUNT 3.96 mill/uL (4.2-5.4); RED CELL DISTRIBUTION WIDTH 15.6 % (11.6-14.6)
[2022-11-18 07:07] LABS: CHLORIDE 103 mEq/L (98-107)
[2022-11-18 08:00] VITALS: BP 104/67
[2022-11-18] MEDS: LISINOPRIL 20MG TABLET PO SCH (08:44)
[2022-11-18] MEDS: ENOXAPARIN 40MG/0.4ML SYR SUBCUT SCH (08:50)
[2022-11-18] MEDS: ASPIRIN 81MG TABLET PO SCH (08:50)
[2022-11-18] MEDS: FAMOTIDINE 20MG/2ML VIAL IV SCH (08:50)
[2022-11-18 12:00] VITALS: BP 116/68
[2022-11-18] MEDS ORDERED: FLUT1DIS3 INH (12:19)
[2022-11-18] MEDS ORDERED: LISI20TA31 PO (12:19)
[2022-11-18] MEDS ORDERED: ALBU6.7H3 INH (12:19)
[2022-11-18] MEDS ORDERED: SPIR25TA PO (12:19)
[2022-11-18] MEDS ORDERED: ASPI-1160 PO (12:19)
[2022-11-18] MEDS ORDERED: ATOR40TA70 MT (12:30)
[2022-11-18] MEDS ORDERED: EMPA10TA PO (12:33)
[2022-11-18 13:43] VITALS: BP 116/68
[2022-11-18 16:00] VITALS: BP 112/79
[2022-11-19] MEDS ORDERED: FAMOTIDINE 20MG TABLET PO SCH (09:00)
== END 2022-11-18 16:54 | disposition home or self-care (01) | DRG 291 ==
LOC: ER 01:45 → 8WST 05:28 → SUPCPDRO 08:05
PROVIDERS: ADMIT Internal Medicine; ATTEND Internal Medicine
DX: I11.0 Hypertensive heart disease with heart failure (principal); I50.23 Acute on chronic systolic (congestive) heart failure; J96.01 Acute respiratory failure with hypoxia; J44.1 Chronic obstructive pulmonary disease with (acute) exacerbation; F17.210 Nicotine dependence, cigarettes, uncomplicated; F14.10 Cocaine abuse, uncomplicated; E78.5 Hyperlipidemia, unspecified; I35.0 Nonrheumatic aortic (valve) stenosis; I42.9 Cardiomyopathy, unspecified; Z91.14 Patient's other noncompliance with medication regimen; Z79.82 Long term (current) use of aspirin; I69.398 Other sequelae of cerebral infarction; Z20.822 Contact with and (suspected) exposure to COVID-19
CPT/HCPCS: 36415; 36600; 71045; 80048; 80053; 80061; 80305; 81003; 82375; 82550; 82553; 82607; 82746; 82805; 83036; 83605; 83735; 83880; 84100; 84439; 84443; 84484; 85025; 87426; 90686; 90732; 93005; 93306; 93970; 94640; 99285; C9803; J1650; J1940; J3490; J7626

== ENCOUNTER 2024-02-24 06:05 | Inpatient (IN) | payer BC, MEDICAID ==
[~2024-02-24] VITALS: Ht 149.9 cm; Wt 44.5 kg
[~2024-02-24 06:05] MED LIST: ALBU6.7H3 INH; ASPI-1160 PO; ATOR40TA70 MT; EMPA10TA PO; FLUT1DIS3 INH; LISI20TA31 PO; SPIR25TA PO
[2024-02-24 07:09] LABS: BASOPHILS % 1.1 % (0.0-2.0); EOSINOPHILS % 2.8 % (0.0-5.0); HEMATOCRIT. 31.6 % (36.0-48.0); HEMOGLOBIN. 10.5 g/dL (12.0-16.0); LYMPHOCYTES % 13.1 % (20.0-50.0); MEAN CORPUSCULAR HEMOGLOBIN 31.9 pg (28.0-32.0); MEAN CORPUSCULAR HGB CONC 33.2 g/dL (31.0-37.0); MEAN PLATELET VOLUME 8.9 fl (7.4-10.4); MONOCYTES % 8.4 % (2.0-8.0); NEUTROPHILS % 74.6 % (40.0-76.0); PLATELET 151 x1000/uL (130-400); RED BLOOD CELL COUNT 3.29 mill/uL (4.2-5.4); RED CELL DISTRIBUTION WIDTH 14.8 % (11.6-14.6); WHITE BLOOD COUNT 5.6 x1000/uL (4.5-11.0)
[2024-02-24] MEDS: ASPIRIN 81MG TABLET PO ONE (07:27)
[2024-02-24 07:56] LABS: CHLORIDE 106 mEq/L (98-107); POTASSIUM 3.1 mEq/L (3.5-5.1); SODIUM 140 mEq/L (136-145)
[2024-02-24 07:57] LABS: CALCIUM 9.3 mg/dL (8.7-10.4); CARBON DIOXIDE 26 mEq/L (21-32)
[2024-02-24] MEDS ORDERED: ENALAPRIL 2.5MG/2ML VIAL 2ML IV ONE (08:00)
[2024-02-24 08:02] LABS: GLUCOSE 96 mg/dL (70-105); UREA NITROGEN BLOOD 26 mg/dL (9-23)
[2024-02-24 08:03] LABS: ALANINE AMINOTRANSFERASE 31 IU/L (10-49); ASPARTATE AMINOTRANSFERASE 69 IU/L (<34)
[2024-02-24 08:04] LABS: ALBUMIN 3.8 g/dL (3.2-4.8)
[2024-02-24 08:17] LABS: TROPONIN I HIGH SENSITIVITY 75 ng/L (3.0-34)
[2024-02-24 08:21] LABS: BILIRUBIN TOTAL 0.3 mg/dL (0.1-1.0)
[2024-02-24] MEDS: ENALAPRIL 1.25MG/ML VIAL 1ML IV NR (08:31)
[2024-02-24] MEDS: NITROGLYCERIN 0.4MG TABLET SL SL ONE (08:32)
[2024-02-24 10:20] VITALS: BP 120/85; PULSE 99; RESP 18; TEMP 97.4
[2024-02-24 10:21] VITALS: BP 120/85; PULSE 99; RESP 18; TEMP 97.4
[2024-02-24] MEDS ORDERED: DOCUSATE SODIUM 100MG CAPSULE PO PRN (11:15)
[2024-02-24] MEDS ORDERED: ONDANSETRON HCL 4MG/2ML INJ IV PRN (11:15)
[2024-02-24] MEDS ORDERED: IPRATROPIUM/ALBUTEROL 0.5-3(2.5)MG/3ML NEB HHN PRN (11:15)
[2024-02-24] MEDS ORDERED: CLONIDINE 0.1MG TABLET PO PRN (11:15)
[2024-02-24] MEDS ORDERED: ACETAMINOPHEN 325MG TABLET PO PRN ×2 (11:15)
[2024-02-24] MEDS ORDERED: MORPHINE SULFATE 2 MG/ML CPJ (NOT FOR IM USE) IV PRN (11:15)
[2024-02-24] MEDS ORDERED: NALOXONE HCL 0.4MG/ML VIAL IV PRN (11:30)
[2024-02-24 12:00] VITALS: BP 125/78; PULSE 104; RESP 18; TEMP 97.5
[2024-02-24 16:00] VITALS: BP 134/84; PULSE 95; RESP 18; TEMP 97.5
[2024-02-24 20:00] VITALS: BP 147/94; PULSE 95; RESP 19; TEMP 97.2
[2024-02-24] MEDS: CARVEDILOL 3.125 MG TABLET PO SCH (21:11)
[2024-02-25] VITALS: BP 149/90; PULSE 97; RESP 19; TEMP 97.2
[2024-02-25 04:00] VITALS: BP 148/96; PULSE 189; RESP 18; TEMP 98.2
[2024-02-25 06:52] LABS: HEMATOCRIT. 31.2 % (36.0-48.0); HEMOGLOBIN. 10.2 g/dL (12.0-16.0); LYMPHOCYTES % 15.8 % (20.0-50.0); MEAN CORPUSCULAR HEMOGLOBIN 31.2 pg (28.0-32.0); MEAN CORPUSCULAR HGB CONC 32.8 g/dL (31.0-37.0); MEAN CORPUSCULAR VOLUME 95.1 fL (81.0-99.0); MEAN PLATELET VOLUME 8.8 fl (7.4-10.4); MONOCYTES % 8.2 % (2.0-8.0); PLATELET 145 x1000/uL (130-400); RED BLOOD CELL COUNT 3.28 mill/uL (4.2-5.4); RED CELL DISTRIBUTION WIDTH 14.9 % (11.6-14.6); WHITE BLOOD COUNT 4.5 x1000/uL (4.5-11.0)
[2024-02-25 07:03] LABS: CHLORIDE 108 mEq/L (98-107); POTASSIUM 3.7 mEq/L (3.5-5.1); SODIUM 139 mEq/L (136-145)
[2024-02-25 07:04] LABS: CARBON DIOXIDE 25 mEq/L (21-32)
[2024-02-25 07:05] LABS: CALCIUM 9.1 mg/dL (8.7-10.4)
[2024-02-25 07:09] LABS: CREATININE 0.8 mg/dL (0.6-1.0); GLUCOSE 78 mg/dL (70-105)
[2024-02-25 07:10] LABS: UREA NITROGEN BLOOD 15 mg/dL (9-23)
[2024-02-25 08:00] VITALS: BP 134/87; PULSE 80; RESP 18; TEMP 96.6
[2024-02-25] MEDS: SPIRONOLACTONE 25MG TABLET PO SCH (09:14)
[2024-02-25] MEDS: LOSARTAN 25 MG TABLET PO SCH (09:14)
[2024-02-25 12:00] VITALS: BP 126/79; PULSE 74; RESP 18; TEMP 98
[2024-02-25 16:00] VITALS: BP 126/79; PULSE 74; RESP 18; TEMP 98
[2024-02-25] MEDS: FUROSEMIDE 40MG/4ML VIAL IVP SCH (16:50)
[2024-02-25 20:00] VITALS: BP 138/77; PULSE 77; RESP 18; TEMP 97.8
[2024-02-26] VITALS (8 sets, daily range): BP systolic 122–156; BP diastolic 68–97; PULSE 40–86; RESP 18–22; TEMP 97.2–98.9; O2SAT 90
[2024-02-26] MEDS: FUROSEMIDE 40MG TABLET PO SCH (11:58)
[2024-02-26] MEDS: IPRATROPIUM/ALBUTEROL 0.5-3(2.5)MG/3ML NEB HHN SCH (13:43)
[2024-02-27] VITALS (9 sets, daily range): BP systolic 105–151; BP diastolic 78–87; PULSE 66–95; RESP 16–20; TEMP 96.6–98.7; O2SAT 95–98
[2024-02-28] VITALS (10 sets, daily range): BP systolic 107–149; BP diastolic 71–96; PULSE 76–93; RESP 16–20; TEMP 97.2–98.3; O2SAT 92–96
[2024-02-28] MEDS: ENOXAPARIN 30MG/0.3ML SYR SUBCUT SCH (12:10)
[2024-02-29] VITALS (10 sets, daily range): BP systolic 107–146; BP diastolic 63–91; PULSE 73–97; RESP 16–20; TEMP 96.6–97.6; O2SAT 96–97
[2024-03-01] VITALS (8 sets, daily range): BP systolic 97–151; BP diastolic 55–94; PULSE 18–91; RESP 16–20; TEMP 97.2–97.9; O2SAT 97
[2024-03-01] MEDS ORDERED: FURO40TA5 PO (12:15)
[2024-03-01] MEDS ORDERED: LOSA25TA26 PO (12:15)
[2024-03-02] VITALS (9 sets, daily range): BP systolic 117–156; BP diastolic 76–92; PULSE 65–94; RESP 18–20; TEMP 96.4–98.2; O2SAT 97–100
== END 2024-03-02 19:08 | disposition home or self-care (01) | DRG 205 ==
LOC: ER 06:18 → 7WST 08:30
PROVIDERS: ADMIT Internal Medicine; ATTEND Internal Medicine
DX: J68.0 Bronchitis and pneumonitis due to chemicals, gases, fumes and vapors (principal); I50.23 Acute on chronic systolic (congestive) heart failure; J96.01 Acute respiratory failure with hypoxia; I11.0 Hypertensive heart disease with heart failure; Z95.2 Presence of prosthetic heart valve; E11.9 Type 2 diabetes mellitus without complications; I16.0 Hypertensive urgency; I25.10 Atherosclerotic heart disease of native coronary artery without angina pectoris; E78.5 Hyperlipidemia, unspecified; F17.210 Nicotine dependence, cigarettes, uncomplicated; F14.90 Cocaine use, unspecified, uncomplicated; Z86.73 Personal history of transient ischemic attack (TIA), and cerebral infarction without residual deficits; Z91.199 Patient's noncompliance with other medical treatment and regimen due to unspecified reason
CPT/HCPCS: 36415; 71045; 71275; 80048; 80053; 82962; 83880; 84484; 85025; 85379; 93005; 93306; 94640; 99291; J1650; J1940; J3490